=== PATIENT | female | born 1980 | race Caucasian/White ===

== ENCOUNTER 2016-09-13 03:16 | Emergency (ER) | payer OTHER | END 2016-09-13 07:07 | disposition home or self-care (01) | LOC: ER 03:16 | DX: S09.90XA Unspecified injury of head, initial encounter (principal); S20.229A Contusion of unspecified back wall of thorax, initial encounter; S10.93XA Contusion of unspecified part of neck, initial encounter; R03.0 Elevated blood-pressure reading, without diagnosis of hypertension; R11.2 Nausea with vomiting, unspecified; Z90.49 Acquired absence of other specified parts of digestive tract; Z88.0 Allergy status to penicillin; Z88.1 Allergy status to other antibiotic agents; Z88.5 Allergy status to narcotic agent; Z98.51 Tubal ligation status; W19.XXXA Unspecified fall, initial encounter; Y92.009 Unspecified place in unspecified non-institutional (private) residence as the place of occurrence of the external cause | CPT/HCPCS: 36415 ==